=== PATIENT | female | born 1965 ===

== ENCOUNTER 2025-01-25 05:15 | Day surgery (SDC) | payer OTHER ==
[2025-01-23 11:07] VITALS: BP 115/78
[~2025-01-25] VITALS: Ht 154.9 cm; Wt 71.2 kg
[~2025-01-25 05:15] MED LIST: ACID REDUCER20 M1 PO; DILTIAZEM ER120 M2 PO; DULOXETINE HCL60 MG PO; MILLIPRED5 MG PO; PROAIR RESPICL90 MCG IH
[2025-01-25] MEDS ORDERED: METRONIDAZOLE/SODIUM CHLORIDE 500 MG/100 ML PIGGYBACK IV ONE (07:30)
[2025-01-25] MEDS ORDERED: CEFTRIAXONE SODIUM 2,000 MG VIAL ONE (07:30)
[2025-01-25] MEDS ORDERED: BUPIVACAINE HCL/Mpf 0.5% 10ML VIAL ONE (08:36)
[2025-01-25] MEDS ORDERED: HEMOSTATIC MATRIX 1 KIT KIT TOP ONE (08:36)
[2025-01-25] MEDS ORDERED: DIBUCAINE 30 GM TUBE ONE (08:36)
[2025-01-25] MEDS ORDERED: POVIDONE-IODINE 118 ML BOTT TOP ONE (08:36)
[2025-01-25] MEDS ORDERED: LIDOCAINE HCL 1%/EPINEPHRINE 20ML VIAL IJ ONE (08:36)
[2025-01-25] MEDS ORDERED: OXYCODONE HCL5 MG PO (09:56)
[2025-01-25] MEDS ORDERED: TAMSULOSIN HCL 0.4 MG CAP PO ONE ×2 (10:00→11:33)
== END 2025-01-25 17:50 | disposition home or self-care (01) ==
LOC: CIR.AMB 05:15
PROVIDERS: ATTEND Surgery
DX: K64.2 Third degree hemorrhoids (principal); K64.4 Residual hemorrhoidal skin tags; K62.5 Hemorrhage of anus and rectum; Z91.013 Allergy to seafood